=== PATIENT | female | born 1970 | race Caucasian/White ===

== ENCOUNTER → 2024-02-19 06:30 | Outpatient (REF) | payer BC, SELFPAY | LOC: HWWDC 06:30 | PROVIDERS: ATTENDING PHYSICIAN Internal Medicine | DX: Z12.31 Encounter for screening mammogram for malignant neoplasm of breast (principal) | CPT/HCPCS: 77063; 77067 ==

== ENCOUNTER 2024-11-26 20:45 | Day surgery (SDC) | payer BC, SELFPAY ==
[2024-11-26 12:38] VITALS: BP 107/73
[2024-11-26 12:57] LABS: Hematocrit 42.5 % (37.0-47.0); Hemoglobin 14.7 g/dL (12.0-16.0); Mean Corp Hgb Conc. 34.6 g/dL (33.0-37.0); Mean Corpuscular Volume 79.1 fL (81.0-99.0); Nucleated Red Blood Cells % 0 %; Platelet Count 294 10^3/uL (130-400); Red Cell Dist. Width 13.2 % (11.5-14.5)
[2024-11-26 13:10] LABS: ALT (SGPT) 22 U/L (0-35); AST (SGOT) 26 U/L (14-36); Albumin 4.8 g/dl (3.5-5.0); Alkaline Phosphatase 82 U/L (38-126); Blood Urea Nitrogen 12 mg/dl (7-17); Calcium 9.5 mg/dl (8.4-10.2); Carbon Dioxide 24 mmol/L (22-30); Chloride 107 mmol/L (98-107); Glucose 127 mg/dl (70-99); Lipase 120 U/L (23-300); Potassium 4.3 mmol/L (3.5-5.1); Sodium 138 mmol/L (135-145); Total Protein 7.8 g/dl (6.3-8.2); eGFR > 60.00
[2024-11-26] MEDS: ZOFRAN 4 MG IV (16:36)
[2024-11-26] MEDS: DILAUDID 0.5 MG IV ×2 (16:36→21:30)
[2024-11-26] MEDS: NSS 1000 IV (16:39)
[2024-11-26 16:40] VITALS: BMI 29.3
--- NOTE | 2024-11-26 17:02 | ED.GENMED ---
History of Present Illness
General
Chief Complaint: Abdominal Symptoms
Source: patient
Exam Limitations: none
Time Seen by Provider: 11/26/24 15:58
Nursing documentation reviewed up to this point in time: agreed with
History of Present Illness
History of Present Illness:
The patient is a 54-year-old female with history of GERD, H. pylori who presents to the emergency department with right upper abdominal pain and vomiting which started this morning. Patient states she woke up around 5:30 AM secondary to severe pain
in her right upper abdomen which radiates around to her right mid back. About an hour later she started with multiple episodes of vomiting which has persisted. Patient describes pain as a aching pain which wraps from her right upper abdomen into
her right mid back. She denies any 'tearing' component to the pain. She denies any similarity to her history of GERD, H. pylori.
She did take 1 ODT Zofran earlier this morning however continued to vomit. The vomiting has seemed to improve since arriving to the emergency department however the pain is severe, 10/10 in severity.
Patient denies any fevers or chills. She denies any dysuria, hematuria, diarrhea, or constipation. No chest pain or shortness of breath.
Patient states that she had pizza last night for dinner.
Of note�patient does have a hernia in her right upper abdomen from a prior surgical site from a hysterectomy.
Review of Systems
Review of Systems
Allergies reviewed?: Yes
All Other Systems: ROS reviewed and negative except as documented in HPI and ROS
Phy Exam
Physical Exam
Physical Exam:
Vitals: Patient's vital signs are stable. Afebrile
General: Patient is tearful, very uncomfortable due to pain
Skin: Warm and dry, no rashes or lesions
Head: Normocephalic, atraumatic
Eyes: Sclera nonicteric.
Throat: Protecting airway
Neck: Normal ROM, no cervical spine tenderness, no meningismus
Cardiac: Regular rate and rhythm, no murmurs.
Pulm: Normal respiratory effort, no wheezes, rales, rhonchi heard on exam
.
Abdomen: Abdomen soft. Moderate tenderness in right upper quadrant with voluntary guarding. Some tenderness in right mid abdomen. Positive Mcguire sign. Soft, reducible hernia in right upper abdomen without any overlying erythema or warmth. No
CVA tenderness
Extremities: No evidence of cyanosis or edema
Neuro: AAOx3. Grossly intact
Psychiatric: Tearful.
Course
Orders/Labs/Results
Orders:
Orders
11/26/24 12:49
Complete Blood Count/With Diff Urgent
Comprehensive Metabolic Panel Urgent
Lipase Urgent
11/26/24 Dinner
NPO
Allow oral meds: Yes
Allow clear liquids: No
11/26/24 16:16
0.9% Sodium Chloride 1000 ml [Nss] 1,000 ml IV BOLUS
HYDROmorphone [Dilaudid] 0.5 mg IV NOW STA
Ondansetron Injectable [Zofran] 4 mg IV NOW STA
US Abdomen Complete/Upper Urgent
Comment:
Reason For Exam: RUQ pain, +n/V
11/26/24 18:02
Ketorolac [Toradol] 15 mg IV NOW STA
11/26/24 18:32
Piperacillin/Tazo 3.375 Gram [Zosyn] 3.375 gram in 50 ml IV NOW
11/26/24 18:39
Type+Screen Urgent
PTT Urgent
Prothrombin Time Urgent
11/26/24 20:28
Admit/Transfer Patient As Directed
Co-Sign Provider:
Level of Care: Observation services
Assign to:: Medical/Surgical
Physician / Group: [place]
Diagnosis: acute cholecystitis
PRN Pain Medication Management As Directed
May give lesser potent ordered pain med per pt: Yes
preference::
Protocol:: Medication orders for pain may be administered in a
manner that supports deferring to patient preference
when the pt is:
- Requesting an ordered lesser potent pain medication.
Least to most potent pain medications are defined
as: acetaminophen < NSAID < tramadol < opioids
(morphine, oxycodone, hydromorphone).
- Requesting a lesser dose of the same medication IF
ORDERED.
- Requesting a less intrusive route of administration
if both routes are prescribed by the provider (PO <
IV).
11/26/24 20:29
Code Status As Directed
Resuscitation Status: Full Code
11/26/24 20:32
Pantoprazole [Protonix IV] 40 mg IV NOW STA
11/26/24 20:35
0.9% Sodium Chloride [Nss (Preservative Free)] 10 ml IV NOW STA
11/26/24 21:00
Flush (0.9% Sodium Chloride) [Flush (Nss)] See Dose Instructions IV PER PROTOCOL
11/26/24 21:21
HYDROmorphone [Dilaudid] 0.5 mg IV Q4HPRN PRN
11/26/24 21:41
Bisacodyl [Dulcolax] 10 mg RECTAL [id number] PRN
Dextrose 5%/Lactringers 1000ML [D5lr] 1,000 ml IV 80 mls/hr
Ondansetron Injectable [Zofran] 4 mg IV Q6HPRN PRN
Oxycodone [Roxicodone] 5 mg PO Q4HPRN PRN
11/26/24 21:41
SURGICAL CONSULT Routine
Consulting Provider: Anselmo Rivas
Was physician already notified: Yes
Activity As Directed
Activity Level: With Assistance
Pneumatic Compression Sleeves As Directed
Type: Knee high
Vital Signs As Directed
Frequency: Per unit guidelines
Pulse Ox/spot Check [RESP] Routine
Quantity: 1
DX Deep Vein Thrombosis Video Routine
11/27/24 02:00
Piperacillin/Tazo 3.375 Gram [Zosyn] 3.375 gram in 50 ml IV Q6H
11/27/24 06:00
Basic Metabolic Panel IN AM
Complete Blood Count/No Diff IN AM
11/27/24 08:00
Desmopressin [Ddavp] 20 mcg 0.9% Sodium Chloride 50 ml [Nss] 50 ml IV ONCE
Pantoprazole [Protonix IV] 40 mg IV DAILY
Abnormal Lab Results
11/26/24
12:49
MCV 79.1 L fL
(81.0-99.0)
Absolute Neuts (auto) 9.3 H 10^3/uL
(1.4-6.5)
Absolute Lymphs (auto) 0.9 L 10^3/uL
(1.2-3.4)
Neutrophils % 89.4 H %
(42.2-75.2)
Lymphocytes % 8.7 L %
(20.5-51.1)
Monocytes % 1.1 L %
(1.7-9.3)
Glucose 127 H mg/dl
(70-99)
11/26/24 12:49
11/26/24 12:49
Vital Signs
Initial and Last Documented VS:
Initial Vital Signs
Temp Pulse Resp BP Pulse Ox
97.7 F 82 18 107/73 100
11/26/24 12:38 11/26/24 12:38 11/26/24 12:38 11/26/24 12:38 11/26/24 12:38
Last Documented Vital Signs
Temp Pulse Resp BP Pulse Ox
98.8 F 77 20 120/69 98
11/26/24 21:45 11/26/24 21:45 11/26/24 21:45 11/26/24 21:45 11/26/24 21:45
MDM/Problems Addressed
Differential Diagnosis Includes:
Not limited to: Biliary colic, acute cholecystitis, choledocholithiasis, cholangitis, pancreatitis, incarcerated hernia, appendicitis, etc.
MDM/Problems Addressed:
54-year-old female presenting with severe right upper abdominal pain with intractable nausea/vomiting, which started this morning around 5 AM. She did eat pizza last night for dinner. No associated fever, chest pain, shortness of breath, changes in
bowel habits or urinary symptoms. Vitals and physical exam as above. Patient tearful and very uncomfortable 2/2 pain. Abdomen soft with moderate tenderness and voluntary guarding in RUQ w/ positive Jamie sign. She does have a known hernia in her
RUQ from prior hysterectomy port sites, however no erythema, warmth or evidence of incarceration/strangulation. Cardio/pulmonary assessment unremarkable.
Clinical picture highly suspicious for acute cholecystitis or biliary colic. Other possibilities include pancreatitis, appendicitis, gastritis, etc.
ED plan: Labs, abdominal ultrasound. Will treat pain and reassess.
Update: Labs normal. No leukocytosis or LFT abnormalities. Ultrasound does show stones in gallbladder neck with mild wall thickening � findings consistent with acute cholecystitis. No dilation of CBD or obstructive transaminitis suspicious for
choledocholithiasis. Case discussed with general surgery, Dr. Rivas. Gladystieraasad given in ED with plan for OR tomorrow for cholecystectomy.
Of note - patient does have history of von Willebrand�s disease � details of this somewhat unknown by patient. She reports receiving DDAVP one time in the past prior to possible dental procedure. She did have bleeding post hysterectomy in the past.
Did speak directly with general surgeon, Dr. Rivas and hematology, Dr. Sorensen on the phone. Unable to obtain factor testing immediately - would take many weeks.
Plan will be for hospital admission and DDAVP prior to OR tomorrow morning. Patient aware of increased bleeding risk and accepts this risk and would like to proceed with cholecystectomy. Hospitalist, general surgery, and patient comfortable with
plan. Patient accepted to hospitalist service in stable condition.
Chronic conditions affecting care:
N/A
Acute Exacerbation and/or Progression of Chronic Illness:
N/A
*Radiology
Radiology exam reviewed: radiology read reviewed
*Pulse Oximetry
SaO2: 100
Oxygen Mode of Delivery: Room air
Patient hypoxic: no
*EKG
Interpreted by ED Provider?: NA
*Senior Regulatory Affairs Specialist Interpretation
Rate: Senior Regulatory Affairs Specialist- N/A
*Critical Care Note
Total Time (30-74mins, 75-104mins- exclusive of procedures): Not Applicable
Patient Management
Discussion with other providers: Hospitalist and Telephone Mechanic (Case discussed w/ general surgery and hematology)
ED Attending Note
-
Portions of this chart may have been created with voice recognition software.� Occasional wrong word or��sound alike� substitutions may have occurred due to the inherent limitations of voice recognition software.
Discharge Plan
Departure
Patient Disposition: Admit
Date of Disposition: 11/26/24
Time of Disposition: 19:13
Presentation/result/management discussed w/ accepting MD/DO: Hospitalist
Discharge Problem:
Acute cholecystitis
Interventions
Interventions:
*Risk Screen - Suicide Last Done: 11/26/24 12:38
*General Assessment Last Done: 11/26/24 12:38
*Neglect/Abuse Screening Last Done: 11/26/24 16:00
*ED- Fall Risk Assessment Last Done: 11/26/24 16:40
*ED COVID-19 Vaccine History Last Done: 11/26/24 12:38
*Nursing Disposition Last Done: 11/26/24 21:36
RX-Vlutsf-Qqdkmlgyos Assessment Last Done: 11/26/24 16:00
Discharge Date and Time
Discharge Date/Time: 11/26/24 21:37
[2024-11-26] MEDS: TORADOL 15 MG IV (18:08)
[2024-11-26 19:21] LABS: INR 1.05; PT 14.0 Sec (11.4-14.6)
[2024-11-26 19:22] LABS: APTT 29.0 Sec (23.4-35.0)
[2024-11-26] MEDS: ZOSYN 50 IV (19:42)
--- NOTE | 2024-11-26 20:07 | HPS.HSE ---
Family Physician
-
Family Physician: Cecille Mcdermott DO
Chief Complaint
-
Abdominal pain
History of Present Illness
This is a 54-year-old female with past medical history significant for von Willebrand disease, history of H. pylori with intermittent exacerbation of GERD who presents to the emergency department with right upper quadrant discomfort.
Patient reported that she arose 8 AM with mild epigastric discomfort that she attributed to GERD. However within about an hour she started having incessant vomiting that nonbilious. Then she reported worsening of pain which she said is more severe
than when she had a child back. She did not have any fevers or chills. She not have any diarrhea. She denies any sick contact. She has no recent travel. She denies any recent changes to the color of her skin or eyes. Patient denies any history
of gallstones denies any recent episodes of intermittent abdominal pain.
She reports history of von Willebrand disease which was diagnosed after her hysterectomy. She reported that she did have a heavy bleeding after the hysterectomy but that has tolerated other surgeries without significant bleeding. She reported that
she responded to DDAVP in the past and has had DDAVP for dental procedures. She denies any spontaneous mucosal bleeding.
In the emergency department patient was afebrile, blood pressure was 107/73 with a pulse rate of 82 and she was satting 100% on room air. CBC was within normal limits. Electrolytes BUN/creatinine were normal. LFTs were normal.
Right upper quadrant abdominal ultrasound revealed that there is a 1.8 cm nonmobile bowel stones within the gallbladder neck. There is associated mild gallbladder wall thickening. Negative sonographic Mcguire's sign. Findings are considered equivocal
for acute cholecystitis.
Medical History
Past Medical History
Past Medical History: Reports GERD (History of H. pylori) and Other (No endometriosis)
Past Surgical History: Reports Gynocological (Hysterectomy) and Orthopedic
Social History
Tobacco: Non-smoker
Alcohol: Occasional
Drug: None
Personal:
Living: With Family
Family History
Family History: Not pertinent
Allergies / Home Medications
Allergies reflects when Allergies were last updated in [facility].
Home Medications with original date entered in [facility]
Allergy/Medication List:
Allergies
Allergy/AdvReac Type Severity Reaction Status Date / Time
No Known Allergies Allergy Unverified 11/26/24 12:42
Patient takes no medications at home
Review of Systems
-
Constitutional: Reports No Symptoms
EENT: Reports No Symptoms
Respiratory: Reports No Symptoms
Cardiac: Reports No Symptoms
Abdomen/GI: Reports Abdominal Pain, Nausea and Vomiting
: Reports No Symptoms
Musculoskeletal: Reports No Symptoms
Skin: Reports No Symptoms
Neurological: Reports No Symptoms
Endocrine: Reports No Symptoms
Hematologic/Lymphatic: Reports No Symptoms
Psych: Reports No Symptoms
Physical Exam
Vital Signs
Vital Signs
Temp Pulse Resp BP Pulse Ox
97.7 F 82 18 107/73 100
11/26/24 12:38 11/26/24 12:38 11/26/24 12:38 11/26/24 12:38 11/26/24 17:04
Physical Exam
General: Well Developed, Well Nourished and No Apparent Distress
HEENT: NormoCephalic, Moist mucous membranes and Atraumatic
Respiratory: Clear
Cardiac: S1/S2 and Regular Rhythm; No Murmur or Rub
GI: Soft, Non Distended, Normal Bowel Sounds and Tender; No Organomegaly
Rectal: Deferred by Provider
Musculoskeletal: No Clubbing, No Cyanosis and No Edema
Skin: No Rash
Neuro: AO x 3 and Nonfocal/grossly intact
Psych: Calm
Laboratory Results
-
11/26/24 12:49
11/26/24 12:49
Laboratory Results
PT 14.0 Sec (11.4-14.6) 11/26/24 18:39
INR 1.05 11/26/24 18:39
APTT 29.0 Sec (23.4-35.0) 11/26/24 18:39
Total Bilirubin 1.0 mg/dl (0.2-1.3) 11/26/24 12:49
AST 26 U/L (14-36) 11/26/24 12:49
ALT 22 U/L (0-35) 11/26/24 12:49
Alkaline Phosphatase 82 U/L (38-126) 11/26/24 12:49
Lipase 120 U/L (23-300) 11/26/24 12:49
Data Reviewed
-
Ultrasound: Report Reviewed by me
Lab Data: Labs Reviewed by me
Old Records: Reviewed
Impression/Plan
-
IMPRESSION:
54-year-old female with past medical history significant for von Willebrand disease, H. pylori who presents to the emergency department with right upper quadrant pain nausea vomiting and was found to have acute cholecystitis on ultrasound.
PLAN:
Acute cholecystitis -picture completed by [facility]. Patient reports that she has responded DDAVP in the past.
-Admit to MedSurg
-Discussed with both surgery and heme-onc. Heme-onc (Dr. Katz) recommends DDAVP 30 minutes prior to surgery. Patient is aware and comfortable with this idea and wants to proceed accordingly.
-N.p.o. for now
-IV Zosyn
-Pain control and antiemetics
-DDAVP 0.3 mcg/kg once 30 minutes prior to surgery (surgery scheduled for 8 am)
-Surgical consultation
DVT prophylaxis�SCDs for now
CODE STATUS�full code
[2024-11-26 21:00] VITALS: BP 113/66
[2024-11-26] MEDS: PROTONIX IV 40 MG IV (21:16)
[2024-11-26 21:45] VITALS: BP 120/69; BMI 29.0
[2024-11-26 21:55] VITALS: BMI 29.0
[2024-11-26] MEDS: D5LR 1000 IV (22:15)
[2024-11-26 23:00] VITALS: BP 96/55
[2024-11-26] MEDS: OFIRMEV 100 IV (23:29)
[2024-11-27] VITALS (13 sets, daily range): BP systolic 84–120; BP diastolic 58–92
[2024-11-27] MEDS: ZOSYN 50 IV ×2 (01:40→13:51)
[2024-11-27] MEDS: DILAUDID 0.5 MG IV (04:50)
[2024-11-27 06:03] LABS: Hematocrit 37.8 % (37.0-47.0); Hemoglobin 13.0 g/dL (12.0-16.0); Mean Corp Hgb Conc. 34.4 g/dL (33.0-37.0); Mean Corpuscular Volume 79.7 fL (81.0-99.0); Platelet Count 259 10^3/uL (130-400); Red Cell Dist. Width 13.2 % (11.5-14.5)
[2024-11-27] MEDS: TYLENOL PO (06:16)
[2024-11-27 06:22] LABS: Blood Urea Nitrogen 7 mg/dl (7-17); Calcium 9.0 mg/dl (8.4-10.2); Carbon Dioxide 23 mmol/L (22-30); Chloride 110 mmol/L (98-107); Estimated Creatinine Clearance 111 ml/min; Glucose 102 mg/dl (70-99); Potassium 3.7 mmol/L (3.5-5.1); Sodium 137 mmol/L (135-145); eGFR > 60.00
--- NOTE | 2024-11-27 07:31 | CON.GS ---
Medical History
-
Chief Complaint: RUQ abdominal pain
History of Present Illness:
Ms. Cho is a 54 yo F with a PMH of GERD, endometriosis, s/p hysterectomy, and s/p R shoulder surgery who presents with RUQ abdominal pain. She states that her symptoms began acutely yesterday after having some pizza. Currently her pain is
improved but not completely resolved. She continues to have some RUQ discomfort. Initial radiation of pain to the back has resolved. Associated nausea and vomiting. Associated chills, but no fevers. She reports looser stools, but denies any
jaundice, pale stools, or tea colored urine. She has had intermittent attacks of reflux and abdominal discomfort dating back to 2019. Her previous symptoms have been attributed to GERD. She has been previously H. pylori positive though treated.
Regarding her von Willebrand's disease, prior workup and management was through a [facility] [place]. She is uncertain on her factor status. She has previously received DDAVP for procedures. She does not have any routine unusual bleeding issues
such as bloody noses or issues with shaving. 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
Past Medical History
Past Medical History: GERD and Other (Endometriosis)
Past Surgical History: Gynecological (Hysterectomy) and Orthopedic (RIGHT shoulder surgery)
Social History
Tobacco: Non-Smoker
Alcohol: Occasional
Drug: None
Personal:
Living: With Family
Employment: Employed
Family History
Family History: Reviewed & Noncontributory
Allergies / Home Medications
Allergy/AdvReac Type Severity Reaction Status Date / Time
No Known Allergies Allergy Unverified 11/26/24 12:42
�Medication �Instructions �Recorded �Confirmed �Type
Lactobacillis 11/27/24 History
cholecalciferol (vitamin D3) 125 125 mcg PO QMWFSU 11/27/24 11/27/24 History
mcg (5,000 unit) tablet (Vitamin
D3)
pantoprazole 40 mg tablet,delayed 40 mg PO PRN gerd 11/27/24 History
release (Protonix)
Review of Systems
-
A 10 point review of systems was completed, and was negative except as per HPI.
Physical Exam
Vital Signs
Temp Pulse Resp BP Pulse Ox
99.0 F 73 16 96/55 96
11/26/24 23:00 11/26/24 23:00 11/26/24 23:00 11/26/24 23:00 11/26/24 23:00
11/26/24 11/27/24 11/28/24
06:59 06:59 06:59
Actual Weight 79.152 kg
Body Mass Index (BMI) 29.0
Lab Results
11/27/24 05:06
11/27/24 05:06
WBC 10.0 10^3/uL (4.8-10.8) 11/27/24 05:06
Hgb 13.0 g/dL (12.0-16.0) 11/27/24 05:06
Hct 37.8 % (37.0-47.0) 11/27/24 05:06
Plt Count 259 10^3/uL (130-400) 11/27/24 05:06
Abs Immat Gran (auto) 0.0 10^3/uL (0-0.05) 11/26/24 12:49
Neutrophils % 89.4 % (42.2-75.2) H 11/26/24 12:49
Physical Exam
General: Well Developed, Well Nourished and No Apparent Distress
HEENT: Normocephalic and Anicteric
Respiratory: Non Labored Respirations
Cardiac: Regular Rhythm
GI: Soft, Non Distended, Tender (RUQ, positive Mcguire's sign) and Other (Non-peritoneal, palpable soft tissue mass in the RUQ, soft, well circumscribed, non-tender, no skin changes, mobile, no fluctuation with jessica-silverio)
Musculoskeletal: No Edema
Skin: Warm and Dry
Neuro: Nonfocal/Grossly Intact
Data Reviewed
-
Ultrasound: Image Personally Visualized and interpreted and Report Reviewed by me
Labs: Labs Reviewed by me
Assessment / Plan
-
Patient is a 54 yo F p/w acute on chronic cholecystitis
The natural history and pathophysiology of biliary and stone disease was reviewed. Anatomy was reviewed. Options for management including medical management with a low-fat diet versus surgical management with cholecystectomy were considered and
discussed. Given her persistent symptoms recommend cholecystectomy.
Plan for a laparoscopic cholecystectomy. The procedure itself, as well as the risks, benefits, and alternatives was discussed. Specifically, we discussed the risks of bleeding, infection, injury to surrounding structures (bowel, bile ducts), CBD
injury, need for open procedure. Typical postprocedure recovery including pain management, activity restrictions, and the 10 to 20% risk of fluctuations in GI function were discussed. All questions answered. Consent signed.
Hematology and oncology has been curb sided. Little additional information and guidance was provided. Given her history will plan for DDAVP 30 minutes to 2 hours prior to her incision. Specific discussion with Ms. Briggs of her increased bleeding
risks.
-- Lap anushka with IOC
-- Abx: Zosyn
-- NPO, IVF
-- DDAVP prior to incision
-- Pain: Tylenol, IV Dilaudid
--- NOTE | 2024-11-27 07:42 | W.SUR.PREOP ---
Pre-Operative Surgical Note
-
I have examined this patient prior to the performance of the scheduled procedure.
The patient's condition is unchanged from the time of the current History and
Physical and the patient is able to undergo the scheduled procedure.
--- NOTE | 2024-11-27 08:12 | W.PN.UPDATE ---
Update Note
Progress Note Update
Pt transferred to surgical service. So not seen.
[2024-11-27] MEDS: ZOSYN IV (08:47)
--- NOTE | 2024-11-27 09:57 | W.IMMPOSTOP ---
Surgical Immed Post Op Note
-
Primary Surgeon: Rob
Assisting Surgeon: GILLES Pacheco
Pre-op Diagnosis: Cholecystitis
Post-op Diagnosis: Cholecystitis
Procedure Performed: Laparoscopic cholecystectomy with IOC
Anesthesia Type: General
Specimen / Cultures:
1. Gallbladder
Estimated Blood Loss: 3 cc
Complications: None
Operative Findings:
1. Acute on chronic inflammation, impacted stones at neck
2. Critical view, IOC negative
3. Duct and artery with clips
--- NOTE | 2024-11-27 11:48 | PTCARENOTE ---
1115 pt return from sx for lap anushka with cholangiogram. AOx3, present. 4 laps RONI with glue. comfortable. Gave ice chips. bed low ,call katz in reach. RAC 20 with Norm 80.
[2024-11-27] MEDS: TYLENOL 650 MG PO ×2 (13:50→17:32)
[2024-11-27] MEDS: PROTONIX IV 40 MG IV (13:51)
[2024-11-27] MEDS: D5LR IV (13:52)
[2024-11-27] MEDS: NORMOSOL-R/PLASMALYTE-A 1000 IV (13:55)
--- NOTE | 2024-11-27 14:01 | W.DS.TRANS ---
DC Summary - Water Quality Analyst
-
Discharge Instructions:
Discharge Diagnosis/Procedures Acute cholecystitis status post laparoscopic
cholecystectomy
Von Willebrand's disease
Diet As tolerated
Additional Diets If you have loose stools/bloating after surgery,
switch to a low fat diet
Activity No strenuous activity
Additional Activity Do not lift over 20lbs for the next 2-3 weeks
Driving Restrictions No driving for 24 hours
Bathing Restrictions OK to Shower
Wound Care Allow the glue to flake off your incisions on
its own over the next 2-3 weeks. Avoid swimming
or soaking in tubs/pools until incisions are
healed
Instructions:
Stand-Alone Forms:
Changes to Home Medications: No
Discharge Medications:
DC Medications w/original date entered in [facility]
Lactobacillis 11/27/24
acetaminophen 325 mg tablet 650 mg (2 x 325 mg) PO Q4HPRN PRN mild pain #1 tab 11/27/24
cholecalciferol (vitamin D3) 125 mcg (5,000 unit) tablet (Vitamin D3) 125 mcg PO QMWFSU Supplement 11/27/24
oxycodone 5 mg tablet 5 mg PO Q4HPRN PRN breakthrough/severe pain #8 tabs 11/27/24
pantoprazole 40 mg tablet,delayed release (Protonix) 40 mg PO PRN gerd 11/27/24
Home Medication Changes
Pending Results: No
== END 2024-11-27 17:47 | disposition home or self-care (01) ==
LOC: PACU 20:45
PROVIDERS: Emergency Medicine; Internal Medicine; Physician Assistant; CONSULT PHYSICIAN Surgery; EMERGENCY PHYSICIAN Emergency Medicine; FAMILY PHYSICIAN Internal Medicine
DX: K80.10 Calculus of gallbladder with chronic cholecystitis without obstruction (principal)
CPT/HCPCS: 47563; 74300; 76000; 76700; 80048; 80053; 83690; 85025; 85027; 85610; 85730; 86850; 86900; 86901; 88304; 96361; 96365; 96375; 99284; A4300; J2597

== ENCOUNTER → 2025-02-21 12:54 | Outpatient (REF) | payer BC, SELFPAY | LOC: WDC 12:54 | PROVIDERS: ATTENDING PHYSICIAN Internal Medicine | DX: Z12.31 Encounter for screening mammogram for malignant neoplasm of breast (principal) | CPT/HCPCS: 77063; 77067 ==